=== PATIENT | male | born 1950 | race Caucasian/White ===

== ENCOUNTER 2019-06-30 08:39 | Emergency (ER) | payer BC ==
[2019-06-30 08:58] VITALS: BP 124/78
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
== END 2019-06-30 09:54 | disposition home or self-care (01) ==
LOC: UCEAST 08:39
DX: J06.9 Acute upper respiratory infection, unspecified (principal); Z88.1 Allergy status to other antibiotic agents; Z91.040 Latex allergy status
CPT/HCPCS: 99211; G0463

== ENCOUNTER 2023-03-08 17:48 | Inpatient (IN) ==
[2023-03-08] MEDS ORDERED: Ondansetron ODT 4 mg TAB 4 MG TAB ONE (18:05)
[2023-03-08] MEDS ORDERED: Ondansetron ODT 4 mg TAB 4 MG TAB PO ONE (18:05)
[2023-03-08 18:26] LABS: ABS Basophils 0.1 10^3/uL (0.0-0.1); ABS Eosinophils 0.1 10^3/uL (0.0-0.5); ABS Monocytes 0.4 10^3/uL (0.0-1.1); ABS Neutrophils 1.9 10^3/uL (1.5-7.6); ABS Nucleated RBC 0.01 10^3/ul; Eosinophil % 2.7 %; Hematocrit 35.1 % (38-53); Hemoglobin 11.2 g/dL (13.2-16.3); Lymphocyte % 44.7 %; Mean Corpuscular Hemoglobin 20.7 pg (27-33); Mean Corpuscular Volume 64.6 fL (80-97); Mean Platelet Volume 8.7 fL (7.5-11.2); Nucleated Red Blood Cells % 0.3 %/100WBC (0.0-0.8); Platelet Count 193 10^3/uL (150-450); Red Blood Count 5.44 10^6/uL (4.06-5.63); White Blood Count 4.5 10^3/uL (3.6-10.2)
[2023-03-08] MEDS ORDERED: Lactated Ringers 1000 ml BAG 1,000 ML IV ONE (19:43)
[2023-03-08] MEDS ORDERED: Ondansetron 4 mg VIAL 2 MG/ML 2 ml VIAL IV ONE (19:43)
[2023-03-08] MEDS ORDERED: Morphine 4 MG/ML VIAL (1 ml) IV ONE ×2 (19:44→22:14)
[2023-03-08 20:46] LABS: ALT 19 U/L (7-52); AST 25 U/L (13-39); Albumin 4.5 g/dL (3.2-5.2); Albumin/Globulin Ratio 2.3 (1-3); Alkaline Phosphatase 70 U/L (35-149); Anion Gap 11 mmol/L (2-16); Blood Urea Nitrogen 13 mg/dL (6-24); C Reactive Protein < 1.00 mg/L (<8.01); CO2 Carbon Dioxide 23 mmol/L (22-32); Calcium 8.8 mg/dL (8.6-10.3); Chloride 98 mmol/L (101-111); Creatinine, Serum 1.04 mg/dL (0.67-1.17); Glucose 116 mg/dL (70-100); Lipase 11 U/L (11.0-82.0); Potassium 3.8 mmol/L (3.5-5.0); Sodium 132 mmol/L (135-145); Total Protein 6.5 g/dL (6.4-8.9); eGFR CKD-EPI 77.2 (>60)
[2023-03-08] MEDS ORDERED: Iohexol 350 (CONTRAST) 500 ML MDV IV ONE (21:09)
[2023-03-08] MEDS ORDERED: diazePAM INJ CARPUJECT 5 MG/ML SYRINGE IV ONE (22:14)
[2023-03-09] MEDS ORDERED: Ondansetron 4 mg VIAL 2 MG/ML 2 ml VIAL IV ONE (02:39)
[2023-03-09] MEDS ORDERED: Lactated Ringers 1000 ml BAG 1,000 ML IV ONE (02:40)
[2023-03-09] MEDS ORDERED: Morphine 4 MG/ML VIAL (1 ml) IV ONE (04:33)
[2023-03-09] MEDS ORDERED: Ondansetron 4 mg VIAL 2 MG/ML 2 ml VIAL IV PRN (09:19)
[2023-03-09] MEDS: Acetaminophen IV 1 GM/100ML 1,000 MG/100 ML BAG IV PRN (10:05)
[2023-03-09 10:14] LABS: Mean Corpuscular Hemoglobin 20.8 pg (27-33); Mean Corpuscular Hgb Conc 32.5 g/dL (31-36); Mean Platelet Volume 8.7 fL (7.5-11.2); Platelet Count 201 10^3/uL (150-450); Red Blood Count 5.77 10^6/uL (4.06-5.63); Red Cell Distribution Width 16.1 % (12-17); Urine Appearance Clear; Urine Bilirubin Negative (Negative); Urine Blood Negative (Negative); Urine Color Yellow; Urine Glucose Negative (Negative); Urine Ketones 2+ (Negative); Urine Nitrite Negative (Negative); Urine Protein Negative (Negative); Urine Specific Gravity 1.024 (1.002-1.030); Urine Urobilinogen Negative (Negative); White Blood Count 9.4 10^3/uL (3.6-10.2)
[2023-03-09] MEDS: Lactated Ringers 1000 ml BAG 1,000 ML IV SCH ×2 (10:19→21:46)
[2023-03-09 10:53] LABS: Calcium 8.9 mg/dL (8.6-10.3); Creatinine, Serum 0.97 mg/dL (0.67-1.17); Potassium 3.9 mmol/L (3.5-5.0)
[2023-03-09 13:44] LABS: ABS Lymphocytes 1.5 10^3/uL (1.0-4.8); ABS Monocytes 0.7 10^3/uL (0.0-1.1); ABS Neutrophils 7.1 10^3/uL (1.5-7.6); ABS Nucleated RBC 0.01 10^3/ul; Eosinophil % 0.1 %; Hypochromasia 1+; Lymphocyte % 16.2 %; Microcytosis 3+; Nucleated Red Blood Cells % 0.1 %/100WBC (0.0-0.8)
[2023-03-10] MEDS: Acetaminophen IV 1 GM/100ML 1,000 MG/100 ML BAG IV PRN (07:24)
[2023-03-10 13:34] VITALS: BP 134/84
== END 2023-03-10 14:46 | disposition home or self-care (01) | DRG 247 ==
LOC: ED 17:48 → EDHOLD 03-09 09:09 → SSU 03-09 15:36
PROVIDERS: ADMIT Surgery; ATTEND Surgery